=== PATIENT | male | born 1965 | race Two or more races ===

== ENCOUNTER → 2021-09-16 | Day surgery (SDC) | payer OTHER ==
[~2021-09-16] VITALS: Ht 165.1 cm; Wt 72.6 kg
[~2021-09-16] MED LIST: SODIUM CHLORIDE LOCK 10 ML ONE; fentaNYL CITRATE 100 MCG/2 ML VL ONE
[2021-09-16 08:54] LABS: Basophils # (auto) 0.4 10 ^3/uL (0-0.2); Eosinophils # (auto) 0.2 10 ^3/uL (0-0.8); Eosinophils % (auto) 2.3 % (0.0-7.0); Hematocrit 46.1 % (41.0-53.0); Hemoglobin 15.9 g/dL (13.5-17.5); Lymphocytes # (auto) 1.5 10 ^3/uL (0.4-5.4); Lymphocytes % (auto) 19.2 % (10.0-50.0); Mean Corpuscular Hemoglobin 30.8 pg (28.0-32.0); Mean Corpuscular Hgb Conc. 34.6 g/dL (32.0-36.0); Mean Corpuscular Volume 89.1 fL (80.0-100.0); Monocytes # (auto) 0.9 10 ^3/uL (0-1.3); Monocytes % (auto) 10.9 % (0.0-12.0); Neutrophils % (auto) 62.6 % (37.0-80.0); Nucleated Red Blood Cells % 0.1 %; Red Blood Cells 5.17 10^6/uL (4.5-5.90); Red Cell Distribution Width 12.7 % (11.8-14.3)
[2021-09-16 09:05] LABS: BUN/Creatinine Ratio 15.9; Calcium 9.1 mg/dL (8.5-10.1); Potassium 3.7 mmol/L (3.5-5.1)
[2021-09-16 09:20] LABS: INR 1.04 (0.9-1.15); Partial Thromboplastin Time 30.2 sec (23.6-33.0)
[2021-09-16] MEDS: diphenhdrAMINE HCL 50 MG/1 ML VL ONE ×2 (10:31→10:34)
[2021-09-16] MEDS: fentaNYL CITRATE 100 MCG/2 ML VL ONE ×2 (10:31→10:34)
[2021-09-16] MEDS: MIDAZOLAM HCL 5 MG/ML-1ML VIAL ONE ×4 (10:31→10:40)
[2021-09-16 11:25] VITALS: BP 139/92
== END | disposition home or self-care (01) ==
LOC: GI 08:02
PROVIDERS: ATTEND Internal Medicine Gastroenterology
DX: R19.5 Other fecal abnormalities (principal); K64.8 Other hemorrhoids; K63.5 Polyp of colon; K63.89 Other specified diseases of intestine; Z20.822 Contact with and (suspected) exposure to COVID-19
CPT/HCPCS: 36415; 45380; 71045; 80048; 85025; 85610; 85730; 88305; J1200; J2250; J3010; J7030; 99152